=== PATIENT | male | born 1960 | race Caucasian/White ===

== ENCOUNTER 2020-07-24 12:19 | Emergency (ER) | payer MEDICARE, OTHER ==
[~2020-07-24] VITALS: Ht 175.3 cm; Wt 99.8 kg
== END 2020-07-25 08:46 | disposition home or self-care (01) ==
LOC: ER 12:19
DX: S93.401A Sprain of unspecified ligament of right ankle, initial encounter (principal); S93.601A Unspecified sprain of right foot, initial encounter; Z88.0 Allergy status to penicillin; Z88.8 Allergy status to other drugs, medicaments and biological substances; X50.1XXA Overexertion from prolonged static or awkward postures, initial encounter
CPT/HCPCS: 73610; 73630; 99283-25